=== PATIENT | female | born 1985 | race Caucasian/White ===

== ENCOUNTER 2017-07-15 11:12 | Inpatient (IN) | payer BC ==
[2017-07-15] MEDS ORDERED: Sodium Chloride 0.9% 2.5 ML Syringe FLUSH PRN (13:17)
[2017-07-15] MEDS ORDERED: Sodium Chloride 0.9% 10 ML Syringe FLUSH PRN (13:17)
[2017-07-15] MEDS ORDERED: Water For Irrigation,Sterile 1,000 ML Container IRR PRN (13:17)
[2017-07-15] MEDS ORDERED: Carboprost Tromethamine 250 MCG/1 ML Amp IM PRN (13:17)
[2017-07-15] MEDS ORDERED: Methylergonovine 0.2 MG/1 ML Amp IM PRN (13:17)
[2017-07-15] MEDS ORDERED: Butorphanol 1 MG/ML SDV IVPUSH PRN (13:17)
[2017-07-15] MEDS ORDERED: Misoprostol 200 MCG Tab PO PRN (13:17)
[2017-07-15] MEDS ORDERED: Lidocaine 1% 50 ML MDV INJECT PRN (13:17)
[2017-07-15] MEDS ORDERED: Nalbuphine 10 MG/1 ML Vial IVPUSH PRN (13:17)
[2017-07-15] MEDS: Lactated Ringers 1,000 ML IV SCH ×3 (13:28→14:36)
[2017-07-15] MEDS ORDERED: fentaNYL 100 MCG/2 ML SDV ONE (13:52)
[2017-07-15] MEDS ORDERED: Ropivacaine 0.2% 2 MG/ML 20 ML SDV ONE (13:55)
[2017-07-15] MEDS ORDERED: Ropivacaine HCl/PF 100 ML ONE (13:55)
--- NOTE | 2017-07-15 14:51 | PCM.PREANE ---
Preanesthetic Assessment - Anesthesia/Transfusion/Family Hx Anesthesia History: No Prior Anesthesia Family History of Anesthesia Reaction: No Additional History: Patient denies any medical problems, surgical hx or personal or family hx of bleeding or clotting problems - Review of Systems General: No Symptoms Pulmonary: No Symptoms Cardiovascular: No Symptoms Gastrointestinal: No Symptoms Neurological: No Symptoms Other: Reports: None - Physical Assessment Height: 1.63 m Weight: 71.668 kg ASA Class: 2 Mental Status: Alert & Oriented x3 Airway Class: Mallampati = 1 Dentition: Reports: Normal Dentition - Lab Values: Laboratory Last Values WBC 8.02 K/uL (4.0-11.0) 07/15/17 13:29 RBC 4.25 M/uL (4.30-5.90) L 07/15/17 13:29 Hgb 12.3 g/dL (12.0-16.0) 07/15/17 13:29 Hct 36.5 % (36.0-46.0) 07/15/17 13:29 MCV 85.9 fL (80.0-98.0) 07/15/17 13:29 MCH 28.9 pg (27.0-32.0) 07/15/17 13:29 MCHC 33.7 g/dL (31.0-37.0) 07/15/17 13:29 RDW Std Deviation 42.0 fl (28.0-62.0) 07/15/17 13:29 RDW Coeff of Hang 14 % (11.0-15.0) 07/15/17 13:29 Plt Count 209 K/uL (150-400) 07/15/17 13:29 MPV 9.60 fL (7.40-12.00) 07/15/17 13:29 Nucleated RBC % 0.0 /100WBC 07/15/17 13:29 Nucleated RBCs # 0 K/uL 07/15/17 13:29 Blood Type A POSITIVE 07/15/17 13:29 Antibody Screen NEGATIVE 07/15/17 13:29 - Allergies Allergies/Adverse Reactions: Allergies Allergy/AdvReac Type Severity Reaction Status Date / Time No Known Allergies Allergy Verified 07/15/17 13:15 - Acknowledgements Anesthesia Type Planned: Epidural Pt an Appropriate Candidate for the Planned Anesthesia: Yes Alternatives and Risks of Anesthesia Discussed w Pt/Guardian: Yes Pt/Guardian Understands and Agrees with Anesthesia Plan: Yes 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: Endocrine/Metabolic History: Reports: Diabetes, Gestational - SUBSTANCE USE Smoking Status *Q: Never Smoker Second Hand Smoke Exposure: No Recreational Drug Use History: No - CURRENT (IN HOUSE) MEDS Current Meds: Current Medications Butorphanol Tartrate (Stadol) 1 mg IVPUSH Q1H PRN PRN Reason: Pain Carboprost Tromethamine (Hemabate Ds) 250 mcg IM ASDIRECTED PRN PRN Reason: Post Hemorrhage Lactated Ringer's (Ringers, Lactated) 1,000 mls @ 150 mls/hr IV ASDIRECTED MAXI Last Admin: 07/15/17 14:36 Dose: 150 mls/hr Oxytocin/Sodium Chloride (Oxytocin 30 Unit/500 Ml-Ns) 30 unit in 500 mls @ 999 mls/hr IV TITRATE MAXI Lidocaine HCl (Xylocaine 1%) 50 ml INJECT .ONCE PRN PRN Reason: Laceration repair Methylergonovine Maleate (Methergine) 0.2 mg IM ASDIRECTED PRN PRN Reason: Post Hemorrhage Misoprostol (Cytotec) 200 mcg PO .ONCE PRN PRN Reason: Post Hemorrhage Nalbuphine HCl (Nubain) 10 mg IVPUSH Q1H PRN PRN Reason: Pain (severe 7-10) Sodium Chloride (Saline Flush) 10 ml FLUSH ASDIRECTED PRN PRN Reason: Keep Vein Open Sodium Chloride (Saline Flush) 2.5 ml FLUSH ASDIRECTED PRN PRN Reason: Keep Vein Open Sterile Water (Sterile Water For Irrigation) 1,000 ml IRR ASDIRECTED PRN PRN Reason: delivery Discontinued Medications Fentanyl (Sublimaze) Confirm Administered Dose 300 mcg .ROUTE .STK-MED ONE Stop: 07/15/17 13:53 Ropivacaine (Naropin 0.2%) Confirm Administered Dose 100 mls @ as directed .ROUTE .STK-MED ONE Stop: 07/15/17 13:56 Ropivacaine (Naropin 0.2%) Confirm Administered Dose 20 ml .ROUTE .STK-MED ONE Stop: 07/15/17 13:56
[2017-07-15] MEDS ORDERED: Oxytocin/0.9 % Sodium Chloride 30 UNIT/500 ML BAG IV SCH ×2 (15:00→19:00)
[2017-07-15] MEDS ORDERED: Dextrose 5%-Lactated Ringers 1,000 ML IV SCH (17:30)
[2017-07-15] MEDS ORDERED: Lactated Ringers 1,000 ML IV SCH (19:00)
[2017-07-15] MEDS ORDERED: Ibuprofen 400 MG Tab PO PRN (21:04)
[2017-07-15] MEDS ORDERED: Bisacodyl 10 MG Supp RECTAL PRN (21:04)
[2017-07-15] MEDS ORDERED: Docusate Sodium 100 MG Cap PO PRN (21:04)
[2017-07-15] MEDS ORDERED: Witch Hazel Medicated Pads 40/Jar TOP PRN (21:04)
[2017-07-15] MEDS ORDERED: oxyCODONE 5 MG Tab PO PRN (21:04)
[2017-07-15] MEDS ORDERED: Ibuprofen 800 MG Tab PO PRN (21:04)
[2017-07-15] MEDS ORDERED: Benzocaine/Menthol 20%-0.5% Spray 78 GM Cannister TOP PRN (21:04)
[2017-07-15] MEDS ORDERED: Acetaminophen 500 MG Tab PO PRN ×2 (21:04)
[2017-07-15] MEDS ORDERED: Lanolin 100% Cream 7 GM Tube TOP PRN (21:04)
--- NOTE | 2017-07-16 05:00 | OR ---
SURGEON: Faye Massey MD DATE OF PROCEDURE: 07/15/2017 WELDING MACHINE ASSEMBLER: Brody Golden MS-IV. PREOPERATIVE DIAGNOSES: 1. Term at 38 weeks and 3 days. 2. Spontaneous labor. 3. Gestational diabetes, type A1. POSTOPERATIVE DIAGNOSES: 1. Term at 38 weeks and 3 days. 2. Spontaneous labor. 3. Gestational diabetes, type A1. 4. Delivered. PROCEDURE: 1. Spontaneous vaginal delivery. 2. Repair of perineal laceration. ANESTHESIA: Epidural. ESTIMATED BLOOD LOSS: 100 mL. COMPLICATIONS: None. DISPOSITION: Mother and baby stable in Labor and Delivery room, bonding. FINDINGS: Female infant, 3520 grams, scores 9 and 10 at 1 and 5 minutes respectively. Grossly normal placenta with 3-vessel cord. Second-degree midline perineal laceration. BRIEF HISTORY: Lita is a 32-year-old -0-1-2, who presented to Labor and Delivery at 38 weeks and 3 days with a history of regular contractions. She denied vaginal bleeding, leakage of fluid and reported movements. Her care was complicated by gestational diabetes, type A1. GBS negative. On admission, she was found to be 2 to 3 cm dilated, category 1 strip. She was allowed to ambulate and was re-examined 2 hours later and had made cervical change to 4 cm. She was then admitted. Artificial rupture of membranes was performed 2 hours later at was 6 cm, clear fluid. Here contractions spaced out and with no further cervical change, oxytocin augmentation was commenced, she progressed to full dilatation on a maximum dose of 2 milliunits/min of Pitocin,and commenced active pushing. She remained euglycemic throughout the intrapartum period. And heart tracing remained a category 1. She pushed quite well bringing the baby's head down to a +4 station and was set up for delivery in a modified dorsal lithotomy position. PROCEDURE DETAILS: She had a spontaneous vaginal delivery of a live female infant in direct occipito-anterior position, clear amniotic fluid at delivery, loose nuchal cord that was reduced at delivery. Anterior and posterior shoulders and the rest of the baby were delivered without difficulty. Baby was vigorous and cried spontaneously at . The baby was delivered onto the maternal abdomen in the presence of the attendant nursery nurse. With delivery of the , oxytocin was converted to titration for active management of third stage of labor. Cord blood and gas samples were obtained. Placenta was delivered by controlled cord traction and appeared to be complete and intact. Examination of the perineum revealed a second-degree perineal laceration. It was repaired in 3 layers using the 2-0 Vicryl suture. It was hemostatic post repair. Uterine massage was performed, uterus was found to be well contracted below the umbilicus. The patient tolerated the procedure well. Sponge, instrument, and needle counts were correct at the end of the delivery. ADUMVIV / MODL /[id number] MTDD
--- NOTE | 2017-07-16 07:39 | PCM.PNPP ---
<Brody Golden - Last Filed: 07/16/17 10:27> - General Info Date of Service: 07/16/17 Functional Status: Reports: Pain Controlled, Tolerating Diet, Ambulating, Urinating - Review of Systems General: Denies: Fever, Weakness, Fatigue HEENT: Denies: Headaches, Visual Changes Pulmonary: Denies: Shortness of Breath, Pleuritic Chest Pain, Cough Cardiovascular: Denies: Chest Pain, Palpitations, Dyspnea on Exertion Gastrointestinal: Reports: Flatus. Denies: Constipation, Nausea, Vomiting Genitourinary: Denies: Dysuria, Frequency Skin: Denies: Cyanosis, Jaundice, Pallor Neurological: Denies: Confusion, Dizziness, Headache - General Info Date of Service: 07/16/17 - Patient Data Vital Signs - Most Recent: Last Vital Signs Temp 97.6 F 07/16/17 05:50 Pulse 68 07/16/17 05:50 Resp 18 07/16/17 05:50 BP 111/52 L 07/16/17 05:50 Pulse Ox 97 07/16/17 05:50 Weight - Most Recent: 158 lb Lab Results - Last 24 Hours: Laboratory Results - last 24 hr 07/15/17 07/15/17 07/15/17 Range/Units 13:29 13:29 16:52 WBC 8.02 (4.0-11.0) K/uL RBC 4.25 L (4.30-5.90) M/uL Hgb 12.3 (12.0-16.0) g/dL Hct 36.5 (36.0-46.0) % MCV 85.9 (80.0-98.0) fL MCH 28.9 (27.0-32.0) pg MCHC 33.7 (31.0-37.0) g/dL RDW Std Deviation 42.0 (28.0-62.0) fl RDW Coeff of Hang 14 (11.0-15.0) % Plt Count 209 (150-400) K/uL MPV 9.60 (7.40-12.00) fL Nucleated RBC % 0.0 /100WBC Nucleated RBCs # 0 K/uL POC Glucose 60 (60-110) mg/dL Blood Type A POSITIVE Antibody Screen NEGATIVE 09/29/17 09/29/17 09/30/17 Range/Units 18:43 20:05 06:02 WBC (4.0-11.0) K/uL RBC (4.30-5.90) M/uL Hgb 11.2 L (12.0-16.0) g/dL Hct 33.3 L (36.0-46.0) % MCV (80.0-98.0) fL MCH (27.0-32.0) pg MCHC (31.0-37.0) g/dL RDW Std Deviation (28.0-62.0) fl RDW Coeff of Hang (11.0-15.0) % Plt Count (150-400) K/uL MPV (7.40-12.00) fL Nucleated RBC % /100WBC Nucleated RBCs # K/uL POC Glucose 140 H 68 (60-110) mg/dL Blood Type Antibody Screen Med Orders - Current: Current Medications Acetaminophen (Tylenol Extra Strength) 500 mg PO Q4H PRN PRN Reason: Pain Acetaminophen (Tylenol Extra Strength) 1,000 mg PO Q4H PRN PRN Reason: Pain Benzocaine/Menthol (Dermoplast Pain Relief 20%-0.5% Daniel) 78 gm TOP ASDIRECTED PRN PRN Reason: Perineal Comfort Measure Bisacodyl (Dulcolax) 10 mg RECTAL .ONCE PRN PRN Reason: Constipation Docusate Sodium (Colace) 100 mg PO BID PRN PRN Reason: Constipation Emollient Ointment (Lansinoh Hpa) 0 gm TOP ASDIRECTED PRN PRN Reason: Sore Nipples Ibuprofen (Motrin) 400 mg PO Q4H PRN PRN Reason: Pain Ibuprofen (Motrin) 800 mg PO Q6H PRN PRN Reason: Pain Oxycodone HCl (Oxycodone) 5 mg PO Q2H PRN PRN Reason: Pain Witch Jess (Tucks) 1 pad TOP ASDIRECTED PRN PRN Reason: comfort care Discontinued Medications Butorphanol Tartrate (Stadol) 1 mg IVPUSH Q1H PRN PRN Reason: Pain Carboprost Tromethamine (Hemabate Ds) 250 mcg IM ASDIRECTED PRN PRN Reason: Post Hemorrhage Fentanyl (Sublimaze) Confirm Administered Dose 300 mcg .ROUTE .STK-MED ONE Stop: 07/15/17 13:53 Lactated Ringer's (Ringers, Lactated) 1,000 mls @ 150 mls/hr IV ASDIRECTED MAXI Last Admin: 07/15/17 14:36 Dose: 150 mls/hr Oxytocin/Sodium Chloride (Oxytocin 30 Unit/500 Ml-Ns) 30 unit in 500 mls @ 999 mls/hr IV TITRATE MAXI Ropivacaine (Naropin 0.2%) Confirm Administered Dose 100 mls @ as directed .ROUTE .STK-MED ONE Stop: 07/15/17 13:56 Dextrose/Lactated Ringer's (Dextrose 5%-Lactated Ringers) 1,000 mls @ 150 mls/ hr IV ASDIRECTED MAXI Last Admin: 07/15/17 18:03 Dose: 150 mls/hr Lactated Ringer's (Ringers, Lactated) 1,000 mls @ 150 mls/hr IV ASDIRECTED MAXI Last Admin: 07/15/17 19:13 Dose: 150 mls/hr Oxytocin/Sodium Chloride (Oxytocin 30 Unit/500 Ml-Ns) 30 unit in 500 mls @ 2 mls/hr IV TITRATE MAXI; 2 MUNITS/MIN PRN Reason: Protocol Last Admin: 07/15/17 19:14 Dose: 2 munits/min, 2 mls/hr Lidocaine HCl (Xylocaine 1%) 50 ml INJECT .ONCE PRN PRN Reason: Laceration repair Methylergonovine Maleate (Methergine) 0.2 mg IM ASDIRECTED PRN PRN Reason: Post Hemorrhage Misoprostol (Cytotec) 200 mcg PO .ONCE PRN PRN Reason: Post Hemorrhage Nalbuphine HCl (Nubain) 10 mg IVPUSH Q1H PRN PRN Reason: Pain (severe 7-10) Ropivacaine (Naropin 0.2%) Confirm Administered Dose 20 ml .ROUTE .STK-MED ONE Stop: 07/15/17 13:56 Sodium Chloride (Saline Flush) 10 ml FLUSH ASDIRECTED PRN PRN Reason: Keep Vein Open Sodium Chloride (Saline Flush) 2.5 ml FLUSH ASDIRECTED PRN PRN Reason: Keep Vein Open Sterile Water (Sterile Water For Irrigation) 1,000 ml IRR ASDIRECTED PRN PRN Reason: delivery - Interaction Infant Disposition, : in Room with Family Infant Feeding: Breastfed Infant; Nursed Well Support Person: , Sister - Recovery Exam Fundal Tone: Firms with Massage Fundal Level: At Umbilicus Fundal Placement: Midline Lochia Color: Rubra/Red Perineum Description: Intact, Minimal Bruising/Swelling Episiotomy/Laceration: Approximated Bladder Status: Voiding - Exam General: Alert HEENT: Pupils Reactive, Mucous Membr. Moist/[place] Neck: Trachea Midline Lungs: Clear to Auscultation, Normal Respiratory Effort Cardiovascular: Regular Rate, Regular Rhythm GI/Abdominal Exam: Normal Bowel Sounds, Soft, Other (uterus palpated at umbilicus) Skin: Warm, Dry, Intact Neurological: No New Focal Deficit Psy/Mental Status: Alert, Normal Affect, Normal Mood - Problem List & Annotations (1) Vaginal delivery SNOMED Code(s): 180677927 Code(s): O80 - ENCOUNTER FOR FULL-TERM UNCOMPLICATED DELIVERY Status: Acute Current Visit: Yes - Problem List Review Problem List Initiated/Reviewed/Updated: Yes - Assessment Assessment:: PPD #1 with a second degree laceration. Continuing breast feeding with minimal pain and lochia. - Plan Plan:: Plan to discharge home today. Discharge instruction reviewed. Nothing in the vagina for 6 weeks. Continue PNV while breast feeding. Can use OTC ibuprofen/ tylenol as needed for pain. Instructed patient to call if she develops fever greater than 101 or bleeding through a large pad an hour. F/U with [facility] in 6 weeks. <Faye Massey - Last Filed: 07/16/17 11:30> - Patient Data Vital Signs - Most Recent: Last Vital Signs Temp 36.7 C 07/16/17 08:00 Pulse 68 07/16/17 08:00 Resp 14 07/16/17 08:00 BP 102/56 L 07/16/17 08:00 Pulse Ox 98 07/16/17 08:00 Lab Results - Last 24 Hours: Laboratory Results - last 24 hr 07/15/17 07/15/17 07/15/17 Range/Units 13:29 13:29 16:52 WBC 8.02 (4.0-11.0) K/uL RBC 4.25 L (4.30-5.90) M/uL Hgb 12.3 (12.0-16.0) g/dL Hct 36.5 (36.0-46.0) % MCV 85.9 (80.0-98.0) fL MCH 28.9 (27.0-32.0) pg MCHC 33.7 (31.0-37.0) g/dL RDW Std Deviation 42.0 (28.0-62.0) fl RDW Coeff of Hang 14 (11.0-15.0) % Plt Count 209 (150-400) K/uL MPV 9.60 (7.40-12.00) fL Nucleated RBC % 0.0 /100WBC Nucleated RBCs # 0 K/uL POC Glucose 60 (60-110) mg/dL Blood Type A POSITIVE Antibody Screen NEGATIVE 07/15/17 07/15/17 07/16/17 Range/Units 18:43 20:05 06:02 WBC (4.0-11.0) K/uL RBC (4.30-5.90) M/uL Hgb 11.2 L (12.0-16.0) g/dL Hct 33.3 L (36.0-46.0) % MCV (80.0-98.0) fL MCH (27.0-32.0) pg MCHC (31.0-37.0) g/dL RDW Std Deviation (28.0-62.0) fl RDW Coeff of Hang (11.0-15.0) % Plt Count (150-400) K/uL MPV (7.40-12.00) fL Nucleated RBC % /100WBC Nucleated RBCs # K/uL POC Glucose 140 H 68 (60-110) mg/dL Blood Type Antibody Screen Med Orders - Current: Current Medications Acetaminophen (Tylenol Extra Strength) 500 mg PO Q4H PRN PRN Reason: Pain Acetaminophen (Tylenol Extra Strength) 1,000 mg PO Q4H PRN PRN Reason: Pain Benzocaine/Menthol (Dermoplast Pain Relief 20%-0.5% Daniel) 78 gm TOP ASDIRECTED PRN PRN Reason: Perineal Comfort Measure Bisacodyl (Dulcolax) 10 mg RECTAL .ONCE PRN PRN Reason: Constipation Docusate Sodium (Colace) 100 mg PO BID PRN PRN Reason: Constipation Emollient Ointment (Lansinoh Hpa) 0 gm TOP ASDIRECTED PRN PRN Reason: Sore Nipples Ibuprofen (Motrin) 400 mg PO Q4H PRN PRN Reason: Pain Ibuprofen (Motrin) 800 mg PO Q6H PRN PRN Reason: Pain Oxycodone HCl (Oxycodone) 5 mg PO Q2H PRN PRN Reason: Pain Witch Jess (Tucks) 1 pad TOP ASDIRECTED PRN PRN Reason: comfort care Discontinued Medications Butorphanol Tartrate (Stadol) 1 mg IVPUSH Q1H PRN PRN Reason: Pain Carboprost Tromethamine (Hemabate Ds) 250 mcg IM ASDIRECTED PRN PRN Reason: Post Hemorrhage Fentanyl (Sublimaze) Confirm Administered Dose 300 mcg .ROUTE .[facility]-MED ONE Stop: 07/15/17 13:53 Lactated Ringer's (Ringers, Lactated) 1,000 mls @ 150 mls/hr IV ASDIRECTED [facility] Last Admin: 07/15/17 14:36 Dose: 150 mls/hr Oxytocin/Sodium Chloride (Oxytocin 30 Unit/500 Ml-Ns) 30 unit in 500 mls @ 999 mls/hr IV TITRATE MAXI Ropivacaine (Naropin 0.2%) Confirm Administered Dose 100 mls @ as directed .ROUTE .STK-MED ONE Stop: 07/15/17 13:56 Dextrose/Lactated Ringer's (Dextrose 5%-Lactated Ringers) 1,000 mls @ 150 mls/ hr IV ASDIRECTED [facility] Last Admin: 07/15/17 18:03 Dose: 150 mls/hr Lactated Ringer's (Ringers, Lactated) 1,000 mls @ 150 mls/hr IV ASDIRECTED MAXI Last Admin: 07/15/17 19:13 Dose: 150 mls/hr Oxytocin/Sodium Chloride (Oxytocin 30 Unit/500 Ml-Ns) 30 unit in 500 mls @ 2 mls/hr IV TITRATE MAXI; 2 MUNITS/MIN PRN Reason: Protocol Last Admin: 07/15/17 19:14 Dose: 2 munits/min, 2 mls/hr Lidocaine HCl (Xylocaine 1%) 50 ml INJECT .ONCE PRN PRN Reason: Laceration repair Methylergonovine Maleate (Methergine) 0.2 mg IM ASDIRECTED PRN PRN Reason: Post Hemorrhage Misoprostol (Cytotec) 200 mcg PO .ONCE PRN PRN Reason: Post Hemorrhage Nalbuphine HCl (Nubain) 10 mg IVPUSH Q1H PRN PRN Reason: Pain (severe 7-10) Ropivacaine (Naropin 0.2%) Confirm Administered Dose 20 ml .ROUTE .STK-MED ONE Stop: 07/15/17 13:56 Sodium Chloride (Saline Flush) 10 ml FLUSH ASDIRECTED PRN PRN Reason: Keep Vein Open Sodium Chloride (Saline Flush) 2.5 ml FLUSH ASDIRECTED PRN PRN Reason: Keep Vein Open Sterile Water (Sterile Water For Irrigation) 1,000 ml IRR ASDIRECTED PRN PRN Reason: delivery - Exam Extremities: Normal Inspection, No Pedal Edema - Problem List & Annotations (1) Vaginal delivery SNOMED Code(s): 922600060 Code(s): O80 - ENCOUNTER FOR FULL-TERM UNCOMPLICATED DELIVERY Status: Acute Current Visit: Yes (2) Gestational diabetes mellitus (GDM), delivered SNOMED Code(s): 09244468 Code(s): O24.429 - GESTATIONAL DIABETES MELLITUS IN CHILDBIRTH, UNSP CONTROL Status: Acute Current Visit: Yes - Problem List Review Problem List Initiated/Reviewed/Updated: Yes - My Orders Last 24 Hours: My Active Orders 07/15/17 21:04 Patient Status [ADT] Routine May Shower [RC] ASDIRECTED Up ad Kasia [RC] ASDIRECTED Vital Signs [RC] PER UNIT ROUTINE Acetaminophen [Tylenol Extra Strength] 1,000 mg PO Q4H PRN Acetaminophen [Tylenol Extra Strength] 500 mg PO Q4H PRN Benzocaine/Menthol [Dermoplast Pain Relief 20%-0.5% Daniel] 78 gm TOP ASDIRECTED PRN Bisacodyl [Dulcolax] 10 mg RECTAL .ONCE PRN Docusate Sodium [Colace] 100 mg PO BID PRN Ibuprofen [Motrin] 400 mg PO Q4H PRN Ibuprofen [Motrin] 800 mg PO Q6H PRN Lanolin [Lansinoh HPA] See Dose Instructions TOP ASDIRECTED PRN Witch Jess [Tucks] 1 pad TOP ASDIRECTED PRN oxyCODONE 5 mg PO Q2H PRN Assess Lochia [WOMSER] Per Unit Routine Assess Uterine Involution [WOMSER] Per Unit Routine Breast Pump [WOMSER] Per Unit Routine Perineal Care [OM.PC] Per Unit Routine Peripheral IV Discontinue [OM.PC] Routine Resuscitation Status Routine 07/16/17 06:00 Blood Glucose Check, Bedside [RC] AMPROC 07/16/17 Breakfast Regular Diet [DIET] - Assessment Assessment:: Patient evaluated independently- agree with above assessment. Patient's fasting BS was normal at 71 this am - Plan Plan:: Agree with the above. Patient may be discharged later today if clinically stable and baby discharged.
--- NOTE | 2017-07-16 12:28 | PCM48HPAN ---
Post Anesthesia Note - EVALUATION WITHIN 48HRS OF ANESTHETIC Vital Signs in Normal Range: Yes Patient Participated in Evaluation: Yes Respiratory Function Stable: Yes Airway Patent: Yes Cardiovascular Function Stable: Yes Hydration Status Stable: Yes Pain Control Satisfactory: Yes Nausea and Vomiting Control Satisfactory: Yes Mental Status Recovered: Yes - COMMENTS/OBSERVATIONS Free Text/Narrative:: Sitting up in bed baby. States her back is a little sore and used a warm pack. Denies any other complaints.
[2017-07-16 22:27] VITALS: BP 109/61
== END 2017-07-16 22:20 | disposition home or self-care (01) | DRG 560 ==
LOC: MW.OBCHECK 11:12 → MW.OB 11:19 → MW.OBCHECK 13:16 → MW.OB 13:17 → OBSVTOIN 21:04 → MW.OB 07-16 01:30
PROVIDERS: ADMIT Obstetrics & Gynecology; ATTEND Obstetrics & Gynecology
PROC: 10E0XZZ Delivery of Products of Conception, External Approach (ICD-10-PCS; principal; 2017-07-15)
PROC: 0KQM0ZZ Repair Perineum Muscle, Open Approach (ICD-10-PCS; 2017-07-15)
PROC: 10907ZC Drainage of Amniotic Fluid, Therapeutic from Products of Conception, Via Natural or Artificial Opening (ICD-10-PCS; 2017-07-15)
DX: O24.429 Gestational diabetes mellitus in childbirth, unspecified control (principal); O70.1 Second degree perineal laceration during delivery; Z3A.38 38 weeks gestation of pregnancy; Z37.0 Single live birth
CPT/HCPCS: 01967; 36415; 59025; 59409; 82962; 85014; 85018; 85027; 86850; 86900; 86901; A9270-GY; J2590; J2795; J3010; J7042; J7120

== ENCOUNTER 2017-12-01 15:25 | Emergency (ER) | payer BC, OTHER ==
--- NOTE | 2017-12-01 15:49 | EDM.PDOC ---
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 Lita is a young infant that she is breast-feeding and is recommended that she does not breast-feed while on the medication until viral load is certain, Geno Alvarado's recommendation from [place] [facility] [place] is that if the viral load were to come back below thousand post exposure prophylaxis would not be required for Lita and she could continue breast-feeding. Her exposure was that of gloved hands but blood extended beyond the gloves is no open skin lesions on her forearms she is also wearing closed toed shoes and stockings for blood did soak through, and contact with her feet again no open lesions Lita is asymptomatic no fever nausea vomiting diarrhea constipation chest pain shortness breath headache dizziness palpitation about a urine symptoms] Review of systems: As per history of present illness and below otherwise all systems reviewed and negative. Past medical history: As per history of present illness and as reviewed below otherwise noncontributory. Surgical history: As per history of present illness and as reviewed below otherwise noncontributory. Social history: No reported history of drug or alcohol abuse. Family history: As per history of present illness and as reviewed below otherwise noncontributory. Physical exam: HEENT: Atraumatic, normocephalic, pupils reactive, negative for conjunctival pallor or scleral icterus, mucous membranes moist, throat clear, neck supple, nontender, trachea midline. Lungs: Clear to auscultation, breath sounds equal bilaterally, chest nontender. Heart: S1S2, regular, negative for clicks, rubs, or JVD. Abdomen: Soft, nondistended, nontender. Negative for masses or hepatosplenomegaly. Negative for costovertebral tenderness. Pelvis: Stable nontender. Genitourinary: Deferred. Rectal: Deferred. Extremities: Atraumatic, negative for cords or calf pain. Neurovascular unremarkable. Neuro: Awake, alert, oriented. Cranial nerves II through XII unremarkable. Cerebellum unremarkable. Motor and sensory unremarkable throughout. Exam nonfocal. Skin as per history of present illness essentially unremarkable Diagnostics: [Post exposure prophylaxis lab was ordered last night prior to my involvement ] Therapeutics: [Truvada 1 by mouth daily #28 no refill tivicay 50 mg by mouth daily #28 no refill] Impression: [Post exposure prophylaxis-HIV ] Definitive disposition and diagnosis as appropriate pending reevaluation and review of above. 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 ED EXAM, GENERAL - Physical Exam Exam: See Below Departure - Departure Time of Disposition: 15:48 Disposition: Home, Self-Care 01 Condition: Good Clinical Impression: Exposure to blood-borne pathogen - Discharge Information Additional Instructions: The following information is given to patients seen in the emergency department who are being discharged to home. This information is to outline your options for follow-up care. We provide all patients seen in our emergency department with a follow-up referral. The need for follow-up, as well as the timing and circumstances, are variable depending upon the specifics of your emergency department visit. If you don't have a primary care physician on staff, we will provide you with a referral. We always advise you to contact your personal physician following an emergency department visit to inform them of the circumstance of the visit and for follow-up with them and/or the need for any referrals to a consulting specialist. The emergency department will also refer you to a specialist when appropriate. This referral assures that you have the opportunity for follow-up care with a specialist. All of these measure are taken in an effort to provide you with optimal care, which includes your follow-up. Under all circumstances we always encourage you to contact your private physician who remains a resource for coordinating your care. When calling for follow-up care, please make the office aware that this follow-up is from your recent emergency room visit. If for any reason you are refused follow-up, please contact the [facility] emergency department at and asked to speak to the emergency department charge nurse.
== END 2017-12-01 16:00 | disposition home or self-care (01) ==
LOC: MW.ED 15:25
DX: Z20.6 Contact with and (suspected) exposure to human immunodeficiency virus [HIV] (principal); Z77.21 Contact with and (suspected) exposure to potentially hazardous body fluids
CPT/HCPCS: 36415; 86706; 86803; 87389; 99281